=== PATIENT | male | born 2000 | race Caucasian/White ===

== ENCOUNTER → 2020-10-29 | Outpatient (CLI) | payer OTHER | LOC: LAB 07:30 | PROVIDERS: ATTEND Nurse Anesthetist, Certified Registered | DX: Z01.812 Encounter for preprocedural laboratory examination (principal); Z20.822 Contact with and (suspected) exposure to COVID-19; L05.91 Pilonidal cyst without abscess | CPT/HCPCS: U0003 ==

== ENCOUNTER → 2020-11-02 | Day surgery (SDC) | payer OTHER ==
[~2020-11-02] MED LIST: ACETAMINOPHEN 500 MG TABLET PO ONE; BUPIVACAINE-EPI 0.25%-1:200000 MPF 30 ML VIAL. ONE; DEXAMETHASONE SOD PHOS 4 MG/ML VIAL. ONE; FLUT1DIS IH; IPRATRPIUM/ALBUTEROL 0.5/2.5MG 3 ML NEBU. NEB PRN; IV RINGERS SOLUTION,LACTATED 1,000 ML IV SCH; KETOROLAC 30 MG/ML VIAL. ONE; LIDOCAINE 2% PF 5 ML VIAL. ONE; MIDAZOLAM HCL PF 2 MG/2 ML VIAL. IV ONE; MIDAZOLAM HCL PF 2 MG/2 ML VIAL. ONE; ONDANSETRON PF 4 MG/2 ML VIAL. IV PRN; ONDANSETRON PF 4 MG/2 ML VIAL. ONE; PROPOFOL 10,000 MCG/ML (20ML) VIAL IV ONE; SEVOFLURANE 61 TO 120 MINUTES. IH ONE; SUCCINYLCHOLINE 200 MG/10 ML VIAL. ONE; ceFAZolin SODIUM 2 GM in IV DEXTROSE 5% 50 ML IV ONE; oxyCODONE/APAP 5/325 1 TAB TABLET PO ONE; singulair
--- NOTE | 2020-11-02 13:22 | PDOC4 ---
Operative Report DATE November [id number] at 1320 Preop Diagnosis Pilonidal cyst Post-op Diagnosis Same Operation Performed Pilonidal cystectomy Patient is 20-year-old male with complaints of chronically draining wounds at the crease of his buttocks consistent with a pilonidal cyst. Procedure of excision was explained to the patient detail was benefits were also discussed including bleeding infection. Alternatives to this procedure also discussed with the patient who seemed to understand and gave a verbal written consent to have the procedure performed. Patient was taken to the operating room placed the supine position general anesthesia was initiated once patient was sleeping abated he was placed in prone positioning and his buttocks was prepped and draped usual sterile fashion using ChloraPrep. An area around the pilonidal cyst was injected with quarter percent Marcaine with epinephrine elliptical incision was made with 15 blade scalpel is carried down through the subcutaneous tissue using electrocautery right hemostasis pilonidal cyst was completely excised and sent for pathology the wound was irrigated with saline and suctioned dry wound was then closed in several layers the deep layer running 0 Vicryl a more superficial layer with running 3-0 Vicryl and the skin was reapproximated with 2-0 nylon horizontal mattress sutures. Wound was dressed with 4 x 4's and mesh underwear. Patient was repositioned in the supine position awakened and extubated operating room taken to recovery in stable condition all sponge instrument needle counts listed as correct estimated blood loss 20 mL Surgeon Ramon ANESTHESIA PROPOSED: GENERAL Blood Loss 20 mL Specimen Pilonidal cyst Complications None LIANE STOLL MD Nov 02, 2020 13:22
--- NOTE | 2020-11-02 13:26 | DISCH ---
DISCHARGE INSTRUCTIONS-DC Condition on Discharge Condition on Discharge: Stable Activity after Discharge Activity Instructions for Disc: Avoid exertion Other activity instructions: No heavy lifting for 2 weeks Diet after Discharge Diet after Discharge: Regular Wound/Incision Care Other wound/incision instructi: Jacqueline shower in 24 hours Contacting the after DC Call your doctor for: If your condition worsens Follow-Up Follow up with: Dr. Stoll in 2 weeks LIANE STOLL MD Nov 02, 2020 13:26
[2020-11-02 14:29] VITALS: BP 106/65
== END | disposition home or self-care (01) ==
LOC: SURG 11:39
PROVIDERS: ATTEND Surgery
DX: L05.91 Pilonidal cyst without abscess (principal); J45.909 Unspecified asthma, uncomplicated; Z98.890 Other specified postprocedural states; Z72.89 Other problems related to lifestyle; Z79.899 Other long term (current) drug therapy
CPT/HCPCS: 11771; J0330; J0690; J1100; J1885; J2001; J2250; J2405; J2704; J3010; J3490; J7120